=== PATIENT | male | born 1975 ===

== ENCOUNTER 2021-11-05 16:37 | Emergency (ER) | payer SELFPAY ==
[2021-11-05 16:58] LABS: AMPHETAMINES,URINE POSITIVE (NEGATIVE); BARBITURATES,URINE NEGATIVE (NEGATIVE); BENZODIAZEPINE,URINE NEGATIVE (NEGATIVE); MDMA (ECSTASY), URINE POSITIVE (NEGATIVE); METHADONE,URINE NEGATIVE (NEGATIVE); METHAMPHETAMINES,URINE POSITIVE (NEGATIVE); OPIATES,URINE NEGATIVE (NEGATIVE); OXYCODONE,URINE NEGATIVE (NEGATIVE); PHENCYCLIDINE,URINE NEGATIVE (NEGATIVE); TCA,URINE NEGATIVE (NEGATIVE)
== END 2021-11-05 17:47 | disposition home or self-care (01) ==
LOC: DL.ED 16:37
DX: S06.0X0A Concussion without loss of consciousness, initial encounter (principal); F19.10 Other psychoactive substance abuse, uncomplicated; Z88.0 Allergy status to penicillin; W22.8XXA Striking against or struck by other objects, initial encounter
CPT/HCPCS: 70450; 80305-QW; 99284-25

== ENCOUNTER 2025-01-10 18:18 | Emergency (ER) | payer SELFPAY ==
[2025-01-10] MEDS ORDERED: Naloxone 2 MG/2 ML Syringe ONE (18:19)
[2025-01-10] MEDS ORDERED: Sodium Chloride 0.9% 10 ML Syringe FLUSH PRN (18:21)
[2025-01-10] MEDS: Naloxone 2 MG/2 ML Syringe IVPUSH ONE (18:21)
[2025-01-10] MEDS: LORazepam 2 MG/ML SDV IVPUSH ONE (18:21)
[2025-01-10] MEDS ORDERED: LORazepam 2 MG/ML SDV ONE (18:24)
[2025-01-10 18:31] LABS: BASOPHILS PERCENT AUTO 0.2 % (0.0-1.0); EOSINOPHILS PERCENT AUTO 1.2 % (1.0-3.0); HEMATOCRIT 48.4 % (40.0-54.0); HEMOGLOBIN 16.3 g/dL (14.0-18.0); LYMPHOCYTES PERCENT AUTO 26.3 % (20.5-50.1); MEAN CORPUSCULAR HEMOGLOBIN 29.7 pg (27.0-34.0); MEAN CORPUSCULAR HGB CONC 33.7 g/dL (33.0-35.0); MEAN CORPUSCULAR VOLUME 88.2 fL (80-100); MONOCYTES PERCENT AUTO 6.7 % (2-8); NEUTROPHILS PERCENT AUTO 65.6 % (42.2-75.2); PLATELET COUNT,PLT 278 10^3/uL (150-450); RED BLOOD CELL COUNT 5.49 10^6/uL (4.6-6.2); WHITE BLOOD CELL COUNT,WBC 10.6 10^3/uL (5.0-10.0)
[2025-01-10] MEDS: Succinylcholine 200 MG/10 ML MDV IVPUSH ONE (18:35)
[2025-01-10] MEDS: Midazolam 5 MG/ML 10 ML MDV IV ONE (18:43)
[2025-01-10 18:46] LABS: A/G RATIO 0.9; ALANINE AMINOTRANSFERASE,ALT 37 U/L (16-63); ALBUMIN 3.5 g/dL (3.4-5.0); ALKALINE PHOSPHATASE 155 U/L (46-116); ANION GAP 13.7 mEq/L (7-13); ASPARTATE AMNIOTRANSFERASE,AST 36 U/L (15-37); BILIRUBIN TOTAL 0.4 mg/dL (0.2-1.0); BLOOD UREA NITROGEN,BUN 7 mg/dL (7-18); CARBON DIOXIDE,CO2 29 mmol/L (21-32); CHLORIDE,CL 102 mmol/L (98-107); CREATININE 0.88 mg/dL (0.70-1.30); GLUCOSE RANDOM 140 mg/dL (70-99); MAGNESIUM 1.8 mg/dL (1.8-2.4); POTASSIUM,K 3.7 mmol/L (3.5-5.1); PROTEIN TOTAL,TP 7.4 g/dL (6.4-8.2); SODIUM,NA 141 mmol/L (136-145)
[2025-01-10] MEDS: propofoL 1,000 MG/100 ML 100 ML IV SCH (18:46)
[2025-01-10 18:48] LABS: C-REACTIVE PROTEIN < 0.50 ng/dL (<=0.50); ESTIMATED GFR 104 mL/min (>=60); ETHANOL BLOOD MEDICAL < 3 mg/dL (0)
[2025-01-10 18:50] LABS: LACTIC ACID 2.3 mmol/L (0.4-2.0)
[2025-01-10] MEDS ORDERED: Etomidate 2 MG/ML 20 ML SDV IVPUSH ONE (18:58)
[2025-01-10] MEDS: HYDROmorphone 0.5 MG/0.5 ML Syringe IVPUSH ONE (19:41)
[2025-01-10 19:47] LABS: O2 DELIVERY DEVICE VENTILATOR
[2025-01-10 19:52] LABS: BICARBONATE,VENOUS 26 mmol/l (19-25); PCO2 VENOUS 59 mmHg (41-51); PH,VENOUS 7.28 (7.31-7.41); PO2 VENOUS 55 mmHg (35-42)
[2025-01-10 19:53] LABS: BASE EXCESS VENOUS -1.6 mmol/l ((-2)-(+3))
[2025-01-10] MEDS: fentaNYL 250 MCG in Sodium Chloride 0.9% 250 ML IV SCH (20:14)
[2025-01-10] MEDS: Tranexamic Acid 1,000 MG in Sodium Chloride 0.9% 500 ML IV ONE (20:19)
[2025-01-10] MEDS: levETIRAcetam in NaCl (iso-os) 1,500 MG in Premix Bag 1 BAG IV ONE (20:44)
[2025-01-10 20:54] LABS: AMPHETAMINES,URINE NEGATIVE (NEGATIVE); BARBITURATES,URINE NEGATIVE (NEGATIVE); BENZODIAZEPINE,URINE NEGATIVE (NEGATIVE); MDMA (ECSTASY), URINE NEGATIVE (NEGATIVE); METHADONE,URINE NEGATIVE (NEGATIVE); METHAMPHETAMINES,URINE POSITIVE (NEGATIVE); OPIATES,URINE NEGATIVE (NEGATIVE); OXYCODONE,URINE NEGATIVE (NEGATIVE); PHENCYCLIDINE,URINE NEGATIVE (NEGATIVE); TCA,URINE NEGATIVE (NEGATIVE)
[2025-01-10] MEDS: fentaNYL 250 MCG/5 ML SDV ONE (23:00)
[2025-01-10] MEDS: Midazolam 1 MG/ML 2 ML SDV IVPUSH ONE (23:35)
== END 2025-01-10 20:46 ==
LOC: DL.ED 18:18
DX: I62.00 Nontraumatic subdural hemorrhage, unspecified (principal); Z88.0 Allergy status to penicillin; Z88.6 Allergy status to analgesic agent
CPT/HCPCS: 31500; 36415; 51702; 70450; 71045; 80053; 80305; 80307; 82803; 83605; 83735; 85025; 86140; 96365; 96366; 96368; 96375; 99285; 99291; 99292; J0330; J1953; J2250; J2310; J2704; J3010; J7040; J1171